=== PATIENT | female | born 1995 | race Caucasian/White ===

== ENCOUNTER 2018-03-08 13:45 | Emergency (ER) | payer BC ==
[2018-03-08 14:32] LABS: ANION GAP 14.5 mmol/L (5-15); CHLORIDE,CL 105 mmol/L (98-115); SODIUM,NA 143 mmol/L (136-145)
[2018-03-08] MEDS ORDERED: Ketorolac 30 MG/ML SDV IVPUSH ONE (14:43)
[2018-03-08] MEDS ORDERED: Ondansetron 4 MG/2 ML SDV IVPUSH ONE (14:43)
--- NOTE | 2018-03-08 15:02 | EDM.PDOC ---
ED HPI GENERAL MEDICAL PROBLEM - General Chief Complaint: General Stated Complaint: FAINTING SPELLS Time Seen by Provider: 03/08/18 14:33 Source of Information: Reports: Patient History Limitations: Reports: No Limitations - History of Present Illness INITIAL COMMENTS - FREE TEXT/NARRATIVE: Patient is a 22-year-old female who presents to the emergency department this afternoon via EMS for complaint of near syncopal episode. Patient presents with both parents. Patient states that she developed some upper back pain last evening. Pain continued on and off today and this afternoon she developed a mild headache, weakness, and near syncope where coworkers had a lower her to the floor. When patient presented to the emergency department she did have nausea and some mid scapular discomfort, but denied chest pain, shortness of breath, fever, abdominal pain, dysuria, vaginal discharge, headache, vision changes, facial numbness or tingling, or extremity numbness or tingling. Patient has been seen for similar symptoms on several occasions over the last few years. Workups have included Holter monitor, EEG, multiple lab tests, abdominal CAT scan, abdominal and pelvic ultrasounds. Per mother and patient all tests were found to be negative. Cause of symptoms remain unknown. Patient admits to episodes of stress, but denies social drugs or caffeine-type drinks. Onset: Today Quality: Reports: Ache Severity: Mild Improves with: Reports: None Worsens with: Reports: None - Related Data Allergies Allergy/AdvReac Type Severity Reaction Status Date / Time Sulfa (Sulfonamide Allergy Cannot Verified 03/08/18 14:01 Antibiotics) Remember ED ROS GENERAL - Review of Systems Review Of Systems: ROS reveals no pertinent complaints other than HPI. Constitutional: Reports: No Symptoms HEENT: Reports: No Symptoms Respiratory: Reports: No Symptoms Cardiovascular: Reports: No Symptoms Endocrine: Reports: No Symptoms GI/Abdominal: Reports: Abdominal Pain : Reports: No Symptoms Musculoskeletal: Reports: Back Pain Skin: Reports: No Symptoms Neurological: Reports: No Symptoms Psychiatric: Reports: No Symptoms Hematologic/Lymphatic: Reports: No Symptoms Immunologic: Reports: No Symptoms ED EXAM, GENERAL - Physical Exam Exam: See Below Exam Limited By: No Limitations General Appearance: Alert, WD/WN, No Apparent Distress Eye Exam: Bilateral Eye: Normal Inspection Ears: Normal External Exam, Normal Canal, Normal TMs Nose: Normal Inspection, Normal Mucosa, No Blood Throat/Mouth: Normal Inspection, Normal Lips, Normal Oropharynx, Normal Voice, No Airway Compromise Head: Atraumatic, Normocephalic Neck: Normal Inspection, Supple, Non-Tender, Full Range of Motion Respiratory/Chest: No Respiratory Distress, Lungs Clear, Normal Breath Sounds, No Accessory Muscle Use, Chest Non-Tender Cardiovascular: Regular Rate, Rhythm, No Murmur, No Rub GI/Abdominal: Normal Bowel Sounds, Soft, No Organomegaly, No Distention, No Abnormal Bruit, No Mass, Tender (Minimal tenderness epigastric) Back Exam: Other (Minimal tenderness mid scapula). No: CVA Tenderness (L), CVA Tenderness (R) Extremities: Normal Inspection, No Pedal Edema, Normal Capillary Refill, Other ( pain, cord, or evidence of DVT) Neurological: Alert, Oriented, CN II-XII Intact, Normal Cognition, Normal Gait, No Motor/Sensory Deficits Psychiatric: Normal Affect, Normal Mood Skin Exam: Warm, Dry, Intact, Normal Color, No Rash Lymphatic: No Adenopathy EKG INTERPRETATION EKG Date: 03/08/18 Time: 14:50 Rhythm: Other (Sinus bradycardia) Rate (Beats/Min): 56 [place]: Normal P-Wave: Present QRS: Normal ST-T: Normal QT: Normal Comparison: NA - No Prior EKG Course - Vital Signs Last Recorded V/S: Last Vital Signs Temp 96.4 F 03/08/18 14:00 Pulse 80 03/08/18 14:00 Resp 16 03/08/18 14:00 BP 130/79 03/08/18 14:00 Pulse Ox 99 03/08/18 14:00 - Orders/Labs/Meds Orders: Active Orders 24 hr Category Date Time Status EKG Documentation Completion [RC] ASDIRECTED Care 03/08/18 14:34 Ordered DRUG SCREEN, URINE [URCHEM] Stat Lab 03/08/18 14:35 Ordered HCG QUALITATIVE,URINE [URCHEM] Stat Lab 03/08/18 14:35 Ordered UA W/MICROSCOPIC [URIN] Stat Lab 03/08/18 14:02 Ordered EKG 12 Lead [EK] Routine Ther 03/08/18 14:34 Ordered Labs: Laboratory Tests 03/08/18 03/08/18 03/08/18 Range/Units 14:10 14:10 14:35 WBC 7.0 (5.0-10.0) 10^3/uL RBC 4.70 (3.80-5.50) 10^6/uL Hgb 14.0 (12.0-16.0) g/dL Hct 42.9 (37.0-47.0) % MCV 91.4 (82.0-92.0) fL MCH 29.7 (27.0-31.0) pg MCHC 32.5 (32.0-36.0) g/dL RDW 13.2 (11.5-14.5) % Plt Count 270 (150-300) 10^3/uL MPV 8.4 (7.4-10.4) fL Neut % (Auto) 66.1 (50.0-70.0) % Lymph % (Auto) 24.7 (20.0-40.0) % [place] % (Auto) 7.8 (2.0-8.0) % Eos % (Auto) 0.6 L (1.0-3.0) % Baso % (Auto) 0.8 (0.0-1.0) % Neut # (Auto) 4.7 (2.5-7.0) 10^3/uL Lymph # (Auto) 1.7 (1.0-4.0) 10^3/uL [place] # (Auto) 0.5 (0.1-0.8) 10^3/uL Eos # (Auto) 0.0 L (0.1-0.3) 10^3/uL Baso # (Auto) 0.1 (0.0-0.1) 10^3/uL Sodium 143 (136-145) mmol/L Potassium 3.5 (3.3-5.3) mmol/L Chloride 105 (98-115) mmol/L Carbon Dioxide 27.0 (21.0-32.0) mmol/L Anion Gap 14.5 (5-15) mmol/L BUN 8 (6-25) mg/dL Creatinine 0.76 (0.51-1.17) mg/dL Est Cr Clr Drug Dosing TNP Estimated GFR (MDRD) > 60 mL/min Glucose 103 (70-110) mg/dL Calcium 8.8 (8.7-10.3) mg/dL Total Bilirubin 1.0 (0.2-1.0) mg/dL AST 19 (15-37) U/L ALT 26 (12-78) U/L Alkaline Phosphatase 75 (46-116) IU/L Total Protein 7.7 (6.4-8.2) g/dL Albumin 4.09 (3.00-4.80) g/dL Lipase 148 (73-393) U/L Specimen Type Urinvoid Urine Color Yellow (YELLOW) Urine Appearance Slightly cloudy H (CLEAR) Urine pH 7.0 (5.0-9.0) Ur Specific [place] 1.010 (1.005-1.030) Urine Protein Negative (NEGATIVE) mg/dL Urine Glucose (UA) Negative (NEGATIVE) mg/dL Urine Ketones Negative (NEGATIVE) mg/dL Urine Occult Blood Negative (NEGATIVE) Urine Nitrite Negative (NEGATIVE) Urine Bilirubin Negative (NEGATIVE) Urine Urobilinogen 0.2 (0.2-1.0) E.U./dL Ur Leukocyte Esterase Negative (NEGATIVE) Urine RBC 0-5 /HPF Urine WBC 0-5 /HPF Ur Epithelial Cells Moderate H /LPF Urine Bacteria Moderate H (NONE TO FEW) /HPF Urine HCG, Qual (NEGATIVE) Urine Opiates Screen (NEGATIVE) Ur Oxycodone Screen (NEGATIVE) Urine Methadone Screen (NEGATIVE) Ur Propoxyphene Screen (NEGATIVE) Ur Barbiturates Screen (NEGATIVE) Ur Tricyclics Screen (NEGATIVE) Ur Phencyclidine Scrn (NEGATIVE) Ur Amphetamine Screen (NEGATIVE) U Methamphetamines Scrn (NEGATIVE) U Benzodiazepines Scrn (NEGATIVE) U Cocaine Metab Screen (NEGATIVE) U Marijuana (THC) Screen (NEGATIVE) 03/08/18 03/08/18 Range/Units 14:35 14:35 WBC (5.0-10.0) 10^3/uL RBC (3.80-5.50) 10^6/uL Hgb (12.0-16.0) g/dL Hct (37.0-47.0) % MCV (82.0-92.0) fL MCH (27.0-31.0) pg MCHC (32.0-36.0) g/dL RDW (11.5-14.5) % Plt Count (150-300) 10^3/uL MPV (7.4-10.4) fL Neut % (Auto) (50.0-70.0) % Lymph % (Auto) (20.0-40.0) % [place] % (Auto) (2.0-8.0) % Eos % (Auto) (1.0-3.0) % Baso % (Auto) (0.0-1.0) % Neut # (Auto) (2.5-7.0) 10^3/uL Lymph # (Auto) (1.0-4.0) 10^3/uL [place] # (Auto) (0.1-0.8) 10^3/uL Eos # (Auto) (0.1-0.3) 10^3/uL Baso # (Auto) (0.0-0.1) 10^3/uL Sodium (136-145) mmol/L Potassium (3.3-5.3) mmol/L Chloride (98-115) mmol/L Carbon Dioxide (21.0-32.0) mmol/L Anion Gap (5-15) mmol/L BUN (6-25) mg/dL Creatinine (0.51-1.17) mg/dL Est Cr Clr Drug Dosing Estimated GFR (MDRD) mL/min Glucose (70-110) mg/dL Calcium (8.7-10.3) mg/dL Total Bilirubin (0.2-1.0) mg/dL AST (15-37) U/L ALT (12-78) U/L Alkaline Phosphatase (46-116) IU/L Total Protein (6.4-8.2) g/dL Albumin (3.00-4.80) g/dL Lipase (73-393) U/L Specimen Type Urine Color (YELLOW) Urine Appearance (CLEAR) Urine pH (5.0-9.0) Ur Specific [place] (1.005-1.030) Urine Protein (NEGATIVE) mg/dL Urine Glucose (UA) (NEGATIVE) mg/dL Urine Ketones (NEGATIVE) mg/dL Urine Occult Blood (NEGATIVE) Urine Nitrite (NEGATIVE) Urine Bilirubin (NEGATIVE) Urine Urobilinogen (0.2-1.0) E.U./dL Ur Leukocyte Esterase (NEGATIVE) Urine RBC /HPF Urine WBC /HPF Ur Epithelial Cells /LPF Urine Bacteria (NONE TO FEW) /HPF Urine HCG, Qual Negative (NEGATIVE) Urine Opiates Screen Negative (NEGATIVE) Ur Oxycodone Screen Negative (NEGATIVE) Urine Methadone Screen Negative (NEGATIVE) Ur Propoxyphene Screen Negative (NEGATIVE) Ur Barbiturates Screen Negative (NEGATIVE) Ur Tricyclics Screen Negative (NEGATIVE) Ur Phencyclidine Scrn Negative (NEGATIVE) Ur Amphetamine Screen Negative (NEGATIVE) U Methamphetamines Scrn Negative (NEGATIVE) U Benzodiazepines Scrn Negative (NEGATIVE) U Cocaine Metab Screen Negative (NEGATIVE) U Marijuana (THC) Screen Negative (NEGATIVE) Meds: Medications Discontinued Medications Generic Name Dose Route Start Last Admin Trade Name Freq PRN Reason Stop Dose Admin Ketorolac Tromethamine 30 mg 03/08/18 14:43 Toradol IVPUSH 03/08/18 14:44 ONETIME ONE Ondansetron HCl 4 mg 03/08/18 14:43 Zofran IVPUSH 03/08/18 14:44 ONETIME ONE - Re-Assessments/Exams Free Text/Narrative Re-Assessment/Exam: 03/08/18 15:42 Patient afebrile, nontoxic appearing, vital signs stable, discomfort relieved. Patient had no episode or headache. While in the emergency department. Discussed in depth with parents and patient that the extent of the emergency department workup showing no acute process. However, it was important to follow -up at [facility] and consider neurology follow-up to evaluate near syncopal episodes. Departure - Departure Time of Disposition: 15:44 Disposition: Home, Self-Care 01 Condition: Good Clinical Impression: Vasovagal near-syncope - Discharge Information Instructions: Near-Syncope, [id number] Referrals: Trini Perez [facility] CONSULTANT [Primary Care Provider] - Forms: ED Department Discharge Additional Instructions: Follow-up at [facility] in 2 days. Consider neurology consult. Return to emergency department sooner if symptoms continue or worsen. - My Orders Last 24 Hours: My Active Orders 03/08/18 14:02 UA W/MICROSCOPIC [URIN] Stat 03/08/18 14:34 EKG Documentation Completion [RC] ASDIRECTED EKG 12 Lead [EK] Routine 03/08/18 14:35 DRUG SCREEN, URINE [URCHEM] Stat HCG QUALITATIVE,URINE [URCHEM] Stat - Assessment/Plan Last 24 Hours: My Active Orders 03/08/18 14:02 UA W/MICROSCOPIC [URIN] Stat 03/08/18 14:34 EKG Documentation Completion [RC] ASDIRECTED EKG 12 Lead [EK] Routine 03/08/18 14:35 DRUG SCREEN, URINE [URCHEM] Stat HCG QUALITATIVE,URINE [URCHEM] Stat
== END 2018-03-08 16:00 | disposition home or self-care (01) ==
LOC: KA.ED 13:45
DX: R55 Syncope and collapse (principal); Z88.2 Allergy status to sulfonamides
CPT/HCPCS: 80053; 80305-QW; 81001; 81025; 83690; 85025; 85379; 93005; 96372; 96374; 99284; J1885; J2405